=== PATIENT | male | born 1940 | race Caucasian/White ===

== ENCOUNTER 2017-04-10 12:45 | Outpatient (CLI) | payer MEDICARE, OTHER ==
[~2017-04-10] VITALS: Ht 170.2 cm; Wt 95.3 kg
[2017-04-10] MEDS ORDERED: DUTA0.5C14 PO (12:58)
[2017-04-10] MEDS ORDERED: NEBI5TAB8 PO (12:58)
[2017-04-10] MEDS ORDERED: ASPI-999 PO (12:58)
[2017-04-10] MEDS ORDERED: TAMS0.4C2 PO (12:58)
[2017-04-10] MEDS ORDERED: ATOR40TA70 PO (12:58)
[2017-04-10] MEDS ORDERED: ACET-93 PO (12:58)
[2017-04-10 13:04] VITALS: BP 136/78
== END 2017-04-10 13:37 | disposition home or self-care (01) ==
LOC: PREOP 12:45
PROVIDERS: ATTEND Orthopaedic Surgery Orthopaedic Surgery of the Spine
DX: Z01.818 Encounter for other preprocedural examination (principal); Z11.2 Encounter for screening for other bacterial diseases; M48.061 Spinal stenosis, lumbar region without neurogenic claudication
CPT/HCPCS: 87081

== ENCOUNTER 2017-04-15 06:00 | Day surgery (SDC) | payer MEDICARE, OTHER ==
[~2017-04-15] VITALS: Ht 170.2 cm; Wt 95.3 kg
[~2017-04-15 06:00] MED LIST: ACET-93 PO; ASPI-999 PO; ATOR40TA70 PO; DUTA0.5C14 PO; NEBI5TAB8 PO; TAMS0.4C2 PO
[2017-04-15 06:10] VITALS: BP 176/86
--- OUTSIDE RECORDS SUMMARY | 2017-04-15 06:14 | XMS REPORT ---
Author Author ECHO ANDRADE e[employer] Address Unknown Phone Unavailable Care Team Providers Care Chair Car Attendant Name Role Phone ECHO ANDRADE CP Unavailable Allergies, Adverse Reactions, Alerts Substance Reaction Event Type N.K.D.A. Info Not Available Non Drug Allergy Problems Problem Type Condition Code Onset Dates Condition Status Assessment Encounter for dental examination Z01.20 Active Problem Encounter for dental examination Z01.20 Active Medications Medication Code System Code Instructions Start Date End Date Status Dosage Lipitor [facility] [id number] not defined Bystolic [facility] [id number] not defined Procedures Procedure Coding System Code Date INTRAORL-PERIAPICAL 1 FILM 94766 CPT-4 D0220 Feb 07, 2016 INTRAORL-PERIAPICAL EA ADD FILM CPT-4 D0230 Feb 07, 2016 COMP ORAL EVALUATION - NEW/EST PT CPT-4 D0150 Feb 07, 2016 BITEWINGS - FOUR FILMS CPT-4 D0274 Feb 07, 2016 INTRAORL-PERIAPICAL EA ADD FILM CPT-4 D0230 Feb 07, 2016 PANORAMIC FILM SEE ALSO CODE 40477 CPT-4 D0330 Feb 07, 2016 Vital Signs Date/Time: Feb 07, 2016 Blood Pressure Diastolic 86 mmHg Blood Pressure Systolic 168 mmHg Cardiac Monitoring Heart Rate 57 bpm Results No Known Results Summary Purpose eClinicalWorks Submission
[2017-04-15] MEDS ORDERED: ceFAZolin 2 GM/50 ML NS 50 ML ONE (06:27)
[2017-04-15] MEDS ORDERED: LACTATED RINGERS 1,000 ML IV PRN (06:33)
[2017-04-15] MEDS ORDERED: SUCCINYLCHOLINE INJ 100 MG/5 ML SYR ONE (06:53)
[2017-04-15] MEDS ORDERED: ROCURONIUM 50 MG/5 ML (ZEMURON) VIAL IV ONE (06:53)
[2017-04-15] MEDS ORDERED: fentaNYL INJECTION 100 MCG/2 ML AMP ONE (06:53)
[2017-04-15] MEDS ORDERED: LIDOCAINE PF 2% 5 ML (XYLOCAINE) VIAL ONE (06:53)
[2017-04-15] MEDS ORDERED: ONDANSETRON 4 MG/2 ML (SDV) Z0FRAN ONE (06:53)
[2017-04-15] MEDS ORDERED: proPOfol 200 MG/20 ML (DIPRIVAN) VIAL IV ONE (06:53)
[2017-04-15] MEDS ORDERED: NS (IVPB) 100 ML ONE (06:54)
[2017-04-15] MEDS ORDERED: DEXAMETHASONE 10 MG/ML (DECADRON) 1 ML VIAL ONE (06:54)
[2017-04-15] MEDS ORDERED: MIDAZOLAM 2 MG/2 ML (VERSED) VIAL ONE (06:54)
[2017-04-15] MEDS ORDERED: DEXMEDETOMIDINE 200 MCG/2 ML (PRECEDEX) VIAL IV ONE (06:54)
[2017-04-15] MEDS ORDERED: BUP/EPI 0.5% 1:200,000 (MARCAINE) 10ML VIAL IJ ONE (06:55)
[2017-04-15] MEDS ORDERED: GENTAMICIN 40 MG/ML 2 ML INJ SDV ONE (06:55)
[2017-04-15] MEDS ORDERED: ceFAZolin 2 GM/50 ML NS 50 ML IV ONE (07:15)
[2017-04-15] MEDS ORDERED: morphine INJ 10 MG/ML 1ML (SYR OR VIAL) IVP PRN ×2 (07:30→09:30)
[2017-04-15] MEDS ORDERED: PROMETHAZINE 25 MG (PHENERGAN) TAB PO PRN (07:30)
[2017-04-15] MEDS ORDERED: ACETAMINOPHEN 325 MG TABLET/CAPLET (TYLENOL) PO PRN (07:30)
[2017-04-15] MEDS ORDERED: ONDANSETRON 4 MG/2 ML (SDV) Z0FRAN IV PRN (07:30)
[2017-04-15] MEDS ORDERED: SEVOFLURANE (ULTANE) 15 ML INHAL SOLN ONE ×2 (08:52→09:09)
--- NOTE | 2017-04-15 08:57 | Progress Note-Post Operative ---
Post-Operative Progess Note Surgeon (s)/Finish Photographer (s) Surgeon TED SEGURA MD Finish Photographer: TONI Jimenez Pre-Operative Diagnosis STENOSIS Post-Operative Diagnosis Same Procedure & Operative Findings Date of Procedure 04/15/17 Procedure Performed/Findings L3-S1 Laminectomy Anesthesia Type GETA Estimated Blood Loss Estimated blood loss (mL): 150 Specimens/Packing Specimens Removed none TED SEGURA MD Apr 15, 2017 8:57 am
[2017-04-15] MEDS ORDERED: GLYCOPYRROLATE 0.2 MG/ML (ROBINUL) 2 ML VIAL ONE (09:05)
[2017-04-15] MEDS ORDERED: NEOSTIGMINE (BLOXIVERZ ) 1 MG/1ML 10 ML VIAL ONE (09:05)
[2017-04-15] MEDS ORDERED: MEPERIDINE (DEMEROL) INJ 50 MG/ML IVP PRN (09:30)
[2017-04-15] MEDS ORDERED: ONDANSETRON 4 MG/2 ML (SDV) Z0FRAN IVP PRN (09:30)
[2017-04-15] MEDS ORDERED: HYDROmorphone (DILAUDID) 2 MG/ML VIAL IVP PRN (09:30)
--- NOTE | 2017-04-15 11:28 | Diagnostic Imaging Report ---
INDICATION: Localization. FINDINGS: Intraoperative crosstable lateral spot radiograph and 3.4 seconds of fluoroscopy time were utilized. The radiograph shows a hooked instrument projecting over the lamina of what is presumed to be the L4 level assuming normal lumbar segmentation. There is L4 on L5 grade 1 anterolisthesis and slight L3 on L4 anterolisthesis. IMPRESSION: Fluoroscopy was utilized during lumbar surgery. Intraoperative posterior element localization was performed. Dictated by: Dictated on workstation # [id number]
[2017-04-15] MEDS ORDERED: ceFAZolin INJECTION 2,000 MG in NS (IVPB) 50 ML IV SCH (11:30)
[2017-04-15 12:00] VITALS: BP 154/63
[2017-04-15] MEDS: HYDROcodone/APAP 5 MG/325 MG (LORTAB) TAB PO PRN ×2 (12:36→20:29)
[2017-04-15] MEDS ORDERED: DEXAMETHASONE 10 MG/ML (DECADRON) 1 ML VIAL IV NR (15:16)
[2017-04-15 15:45] VITALS: BP 159/79
[2017-04-15] MEDS: ceFAZolin 2 GM/NS 50 ML IVPB IV SCH ×2 (15:52→22:06)
[2017-04-15 18:35] VITALS: BP 178/82
[2017-04-15] MEDS: FAMOTIDINE 20 MG (PEPCID) TABLET PO SCH (20:29)
[2017-04-16] VITALS: BP 153/71
[2017-04-16] MEDS: HYDROcodone/APAP 5 MG/325 MG (LORTAB) TAB PO PRN (03:11)
[2017-04-16 04:00] VITALS: BP 166/80
[2017-04-16] MEDS: ceFAZolin 2 GM/NS 50 ML IVPB IV SCH (05:58)
--- NOTE | 2017-04-16 06:43 | Progress Note (SOAP) ---
Subjective Date Seen by Provider: Apr 16, 2017 Time Seen by Provider: 06:42 Subjective/Events-last exam No complaints, feels ok. Little numbness in feet, but pain ok. Objective Exam Vital Signs Date Time Temp Pulse Resp B/P (MAP) Pulse Ox O2 Delivery O2 Flow Rate FiO2 04/16/17 04:00 98.9 81 19 166/80 (108) 95 Room Air 04/16/17 00:00 99.5 73 16 153/71 (98) 97 Room Air 04/15/17 18:35 97.7 65 20 178/82 (114) 96 Room Air 04/15/17 15:45 97.6 63 18 159/79 (105) 99 Room Air 04/15/17 15:25 97.3 04/15/17 13:10 97.3 04/15/17 12:36 97.3 04/15/17 12:00 97.8 72 18 154/63 (93) 95 Room Air 04/15/17 10:10 98 Room Air 04/15/17 10:10 97.3 04/15/17 10:10 97.3 04/15/17 08:09 97.3 I & O 04/16/17 07:00 Intake Total 1690 ml Output Total 1125 ml Balance 565 ml Capillary Refill : General Appearance: No Apparent Distress Neck: Supple Respiratory: No Accessory Muscle Use, No Respiratory Distress Cardiovascular: Regular Rate, Rhythm Gastrointestinal: non tender, soft Extremity: Normal Range of Motion, No Calf Tenderness Neurologic/Psychiatric: Alert, Oriented x3, No Motor/Sensory Deficits Skin: Normal Color Assessment/Plan Assessment/Plan Assess & Plan/Chief Complaint Lumbar Stenosis, Neural Canal Neurogenic Claudication D/C home later today, instructions given Clinical Quality Measures DVT/VTE Risk/Contraindication: Risk Factor Score Per Nursin RFS Level Per Nursing on Admit: 4+=Very High TED SEGURA MD Apr 16, 2017 6:43 am
[2017-04-16] MEDS ORDERED: BACL10TA PO (06:47)
[2017-04-16] MEDS ORDERED: ACHD5005 PO (06:47)
[2017-04-16] MEDS ORDERED: MULTIVIT W/MINERALS TAB (THERAGRAN M) PO SCH (07:00)
[2017-04-16 08:00] VITALS: BP 137/66
--- NOTE | 2017-04-16 08:25 | OPERATIVE REPORT ---
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 PROCEDURES PERFORMED: 1. L3-L4 laminectomy, bilateral medial facetectomy and foraminotomy. 2. L4-L5 laminectomy, bilateral medial fasciectomy and foraminotomy. 3. L5-S1 laminectomy, bilateral medial facetectomy and foraminotomy. DATE AND TIME OF SURGERY: Please see anesthesia record. SURGEON: Jamar Segura MD. SHOE COVERER: ANDRÉS Jimenez. ROLE OF CORE BAKER: Aid in retraction in the procedure, suction of neural elements, and wound closure. ANESTHESIA: General endotracheal. ESTIMATED BLOOD LOSS: 150 mL. INTRAVENOUS FLUIDS: Please see anesthesia record. ANTIBIOTICS: Ancef. COMPLICATIONS: None. SPECIMENS: None. INDICATIONS FOR PROCEDURE: The patient is 76-year-old male with progressively intolerable back and lower extremity pain, high-grade stenosis, failed conservative therapy and desires operative treatment. NEUROMONITORING: Standard neuromonitoring was performed throughout the procedure and stable. Dr. Paulson reading SSEPs, EMGs and TF's were carried out throughout the procedure and is stable. DESCRIPTION OF PROCEDURE: The patient was taken to the preoperative holding area and brought back to the operative suite. After adequate induction of general anesthesia, preoperative antibiotics, turned prone on Ramin table, care with padding to all extremities, sterilely prepped and draped posterior lumbar spine. Attention was directed to the midline, where incision was made from L3-S1 dissection carried down to the level of the lamina. C-arm was brought in for confirmation and appropriate levels were confirmed, partial 3 complete, 4 complete, 5 and partial S1 laminectomy, bilateral medial fasciectomy and foraminotomy performed. Full and adequate decompression was assured. Once adequate decompression was assured and bipolar cautery used to gain hemostasis, deep drain was placed. Wound was closed in layers. The patient transferred to recovery room in stable condition and tolerated the procedure well. Job ID: [id number] DocumentID: [id number] Dictated Date: 04/15/2017 08:59:21 Camera Assembler Date: 04/15/2017 19:12:24 Dictated By: JAMAR SEGURA MD [facility]
[2017-04-16] MEDS: FAMOTIDINE 20 MG (PEPCID) TABLET PO SCH (08:29)
--- NOTE | 2017-04-16 09:40 | Physical Therapy Evaluation ---
PT Evaluation-General Medical Diagnosis Admission Date Apr 15, 2016 Medical Diagnosis: stenosis Onset Date: Apr 15, 2017 Therapy Diagnosis Therapy Diagnosis: debility Height/Weight Height (Feet): 5 Height (Inches): 7.00 Weight (Pounds): 210 Weight (Ounces): 3.0 Precautions Precautions/Isolations: Standard Precautions Weight Bear Status Right Lower Extremity: Right Full Weight Bearing Left Lower Extremity: Left Full Weight Bearing Referral Physician: Melany Reason for Referral: Evaluation/Treatment Medical History Current History s/p L3-S1 laminectomy Reviewed History: Yes Social History Home: Single Level Current Living Status: Spouse Prior/Core FIM Prior Level of Function Functional [place] Measure 0=Not Assessed/NA 4=Minimal Assistance 1=Total Assistance 5=Supervision or Setup 2=Maximal Assistance 6=Modified [place] 3=Moderate Assistance 7=Complete [place] Bed Mobility: 7 Transfers (B,C,W/C) (FIM): 7 Gait: 7 Locomotion: 7 PT Evaluation-Current Subjective Patient reports his left LE feels numb, however, his strength is fine. Pain Numeric Pain Scale: 5-Moderate Pain Location: Lower Location Body Site: Back Pain Description: Acute Objective Patient Orientation: Normal For Age Problem Solving: Good ROM/Strength ROM Lower Extremities bilateral LE WNL Strength Lower Extremities right knee flexion/extension 4/5; hip flexion NT; DF/PF 4/5 left knee flexion/extension 4/5; hip flexion NT; DF/PF 4/5 Integumentary/Posture Integumentary refer to nursing notes Bowel Incontinence: No Bladder Incontinence: No Posture WNL Neuromuscular (Tone, Coordination, Reflexes) grossly intact with left LE slight decreased proprioception Sensory Vision: Functional Hearing: Functional Sensation Right Lower Extremit: Intact Sensation Left Lower Extremity: Impaired Transfers Functional [place] Measure 0=Not Assessed/NA 4=Minimal Assistance 1=Total Assistance 5=Supervision or Setup 2=Maximal Assistance 6=Modified [place] 3=Moderate Assistance 7=Complete [place] Transfers (B, C, W/C) (FIM): 6 Scootin Rollin Supine to/from Sit: 6 Sit to/from Stand: 6 education/instruction on log rolling for bed mobility Gait Mode of Locomotion: Walk Anticipated Mode of Locomotion: Walk Gait (FIM): 6 Distance (FIM): 3=150 ft Distance: 250' Gait Level of Assist: 6 Gait Assistive Device: FWW Comments/Gait Description steady/functional Balance Sitting Static: Normal Sitting Dynamic: Normal Standing Static: Normal Standing Dynamic: Normal Assessment/Needs 76 y.o. male, will benefit from short term skilled PT to address functional strength and mobility to ensure safe return to home with spouse. Rehab Potential: Good PT Short Term Goals Short Term Goals Time Frame: Apr 16, 2017 Transfers (B,C,W/C) (FIM): 6 Gait (FIM): 6 Distance (FIM): 3=150 ft Gait Level of Assist: 6 Gait Assistive Device: FWW PT Plan Treatment/Plan Treatment Plan: Continue Plan of Care Treatment Plan: Bed Mobility, Education, Functional Activity Meri, Functional Strength, Gait, Safety, Therapeutic Exercise, Transfers Treatment Duration: Apr 16, 2017 Frequency: 2 times per week Estimated Hrs Per Day: .5 hour per day Patient and/or Family Agrees t: Yes Safety Risks/Education Patient Education: Gait Training, Correct Positioning, Safety Issues Teaching Recipient: Patient Teaching Methods: Demonstration, Discussion Response to Teaching: Verbalize Understanding, Return Demonstration Discharge Recommendations Therapy D/C Recommendations: Home w/ Family Support Equpiment Recommendations-D/C: Front Wheeled Walker Time/GCodes Time In: 825 Time Out: 849 Total Billed Treatment Time: 24 Total Billed Treatment 1 visit EVMod 24 min G Codes Necessary: Yes PT/OT Therapy GCodes Therapy Functional Limitation: Physical Therapy Test(s)/Tool used to determine: Level of Assistance Scale Functional Limitation-Current Charge Code: MOBCUR Modifier: CI Functional Limitation-Goal Charge Code: MOBGOAL Modifier: CI NADIR ROSS PT Apr 16, 2017 09:40
--- NOTE | 2017-04-16 10:49 | Anesthesia-General Post-Op ---
General Patient Condition Mental Status/LOC: Same as Preop Cardiovascular: Satisfactory Nausea/Vomiting: Absent Respiratory: Satisfactory Pain: Controlled Complications: Absent Post Op Complications Complications None Follow Up Care/Instructions Patient Instructions None needed. Anesthesia/Patient Condition Patient Condition Patient is doing well, no complaints, stable vital signs, no apparent adverse anesthesia problems. No complications reported per nursing. ARCHANA VALE CRNA Apr 16, 2017 10:49
--- NOTE | 2017-04-16 11:40 | Physical Therapy Daily Note ---
PT Daily Note-Current Subjective Patient agrees to PT. No c/o at this time. Pain Numeric Pain Scale: 5-Moderate Pain Location: Lower Location Body Site: Back Pain Description: Acute Mental Status Patient Orientation: Normal For Age Transfers Functional [place] Measure 0=Not Assessed/NA 4=Minimal Assistance 1=Total Assistance 5=Supervision or Setup 2=Maximal Assistance 6=Modified [place] 3=Moderate Assistance 7=Complete IndependenceIRFPAI Quality Coding Scale 6 Independent with activity with or without an assistive device 5 Patient requires set up or clean up by helper. Patient completes activity by themselves 4 Supervision or touching assist (CGA). Treichlers provide cues , steadying assist 3 The helper provides less than half the effort to complete the activity 2 The helper provides more than half the effort to complete the activity 1 Dependent. The helper does all the effort to complete an activity 7 Patient refused to complete or attempt activity 9 The patient did not perform the activity before the current illness or injury 88 Not attempted due to Medical conditions or safety concerns Transfers (B, C, W/C) (FIM): 6 Scootin Supine to/from Sit: 6 Sit to/from Stand: 6 Weight Bearing Right Lower Extremity: Right Full Weight Bearing Left Lower Extremity: Left Full Weight Bearing Gait Training Gait (FIM): 6 Distance (FIM): 3=150 ft Distance: 400' Gait Level of Assist: 6 Gait Assistive Device: FWW slightly unsteady with self correction Stair Training Stair Training: Handrails/: 2 handrails Stairs (FIM): 2 #of Steps: 2 Stairs: Pattern: Step to Level of Assist: 5 Assessment Patient is currently at [facility] with all gross motor skills. Patient instructed to perform activity slowly to ensure safety. PT requests a FWW for home use due to left LE numbness. PT Short Term Goals Short Term Goals Time Frame: Apr 16, 2017 Transfers (B,C,W/C) (FIM): 6 Gait (FIM): 6 Distance (FIM): 3=150 ft Gait Level of Assist: 6 Gait Assistive Device: FWW PT Plan Treatment/Plan Treatment Plan: Discontinue PT, goals met Treatment Plan: Bed Mobility, Education, Functional Activity Meri, Functional Strength, Gait, Safety, Therapeutic Exercise, Transfers Treatment Duration: Apr 16, 2017 Frequency: 2 times per week Estimated Hrs Per Day: .5 hour per day Patient and/or Family Agrees t: Yes Time/GCodes Time In: 1116 Time Out: 1130 Total Billed Treatment Time: 14 Total Billed Treatment 1 visit FA 14 min G Codes Necessary: Yes PT/OT Therapy GCodes Therapy Functional Limitation: Physical Therapy Test(s)/Tool used to determine: Level of Assistance Scale Functional Limitation-Current Charge Code: MOBCUR Modifier: CI Functional Limitation-Goal Charge Code: MOBGOAL Modifier: CI Functional Limitation-D/C Charge Codes: MOBDC Modifier: CI NADIR ROSS PT Apr 16, 2017 11:40
[2017-04-16 12:00] VITALS: BP 142/61
[2017-04-16 14:22] VITALS: BP 142/61
== END 2017-04-16 14:22 | disposition home or self-care (01) ==
LOC: SDC 06:00 → 4TH 10:20 → SDC 04-16 14:22
PROVIDERS: ATTEND Orthopaedic Surgery Orthopaedic Surgery of the Spine
DX: M48.062 Spinal stenosis, lumbar region with neurogenic claudication (principal); M54.16 Radiculopathy, lumbar region; M48.07 Spinal stenosis, lumbosacral region; E78.5 Hyperlipidemia, unspecified; G62.9 Polyneuropathy, unspecified; I10 Essential (primary) hypertension; N40.1 Benign prostatic hyperplasia with lower urinary tract symptoms; Z95.1 Presence of aortocoronary bypass graft; Z79.899 Other long term (current) drug therapy; Z95.2 Presence of prosthetic heart valve; Z79.82 Long term (current) use of aspirin
CPT/HCPCS: 94664

== ENCOUNTER 2018-05-25 18:45 | Emergency (ER) | payer MEDICARE, OTHER ==
[~2018-05-25] VITALS: Ht 170.2 cm; Wt 90.7 kg
[~2018-05-25 18:45] MED LIST changes: +ACHD5005 PO; +BACL10TA PO; -DUTA0.5C14 PO; +DUTA0.5C16 PO
[2018-05-25] MEDS ORDERED: KETOROLAC 30 MG/ML VIAL IVP STA (22:37)
[2018-05-25] MEDS ORDERED: TETANUS,DIPTH,PERTUSS P/F (BOOSTRIX) 0.5 ML VIAL IM STA (22:37)
--- NOTE | 2018-05-25 22:44 | ED Integumentary General ---
General Chief Complaint: Bite-Animal/Human/Insect Stated Complaint: DOG BITE Nursing Triage Note: ARRIVED POV BC HE WAS BREAKING UP A DOG FIGHT BETWEEN A STRAY DOG AND HIS DOG AND GOT BIT ON BOTH HANDS AND HIS RIGHT LOWER SIMON. Source: patient History of Present Illness Date Seen by Provider: May 25, 2018 Time Seen by Provider: 22:30 Initial Comments PT ARRIVES VIA POV FROM HOME PT WAS TRYING TO BREAK UP A FIGHT BETWEEN HIS DOG AND NEIGHBOR'S DOG, AND NEIGHBOR'S DOG BIT HIM SEVERAL TIMES--BOTH HANDS, LEFT FOREARM AND RIGHT LOWER LEG. OCCURRED AROUND 1730 TONIGHT NEIGHBOR'S DOG IS UP TO DATE ON ALL VACCINATIONS. C/O MILD TINGLING AND NUMBNESS TO RIGHT 3RD AND 5TH FINGERS PT STATES HIS LAST TETANUS WAS SEVERAL YEARS AGO. PCP: SINDHU SOTO Allergies and Home Medications Allergies Coded Allergies: No Known Drug Allergies (Unverified , 04/10/17) Home Medications Acetaminophen 500 Mg Tablet, 500-1,000 MG PO Q6H PRN for PAIN-MILD, (Reported) Aspirin 81 Mg Tab.chew, 81 MG PO DAILY, (Reported) Atorvastatin Calcium 40 Mg Tablet, 40 MG PO HS, (Reported) Baclofen 10 Mg Tablet, 10 MG PO TID PRN for SPASMS Prescribed by: TED SEGURA on 04/16/17 0647 Dutasteride 0.5 Mg Capsule, 0.5 MG PO DAILY, (Reported) Hydrocodone Bit/Acetaminophen 1 Tab Tab, 1-2 TAB PO Q4H PRN for PAIN-MODERATE TO SEVERE Prescribed by: TED SEGURA on 04/16/17 0647 Nebivolol HCl 5 Mg Tablet, 5 MG PO DAILY, (Reported) Tamsulosin HCl 0.4 Mg Cap.er.24h, 0.4 MG PO DAILY, (Reported) Past Sslmpft-Axwxeu-Htwyus Hx Patient Social History Alcohol Beverage of Choice: Wine Recent Foreign Travel: No Contact w/Someone Who Travel: No Recent Infectious Disease Expo: No Recent Hopitalizations: No Immunizations Up To Date Tetanus Booster (TDap): Unknown PED Vaccines UTD: No Date of Pneumonia Vaccine: Feb 18, 2017 Date of Influenza Vaccine: Jan 21, 2017 Seasonal Allergies Seasonal Allergies: No Past Medical History Surgeries: Yes (BACK, REMOVED CYST, BYPASS 2011) Respiratory: No Cardiac: Yes (BYPASS) Coronary Artery Disease, High Cholesterol, Hypertension Neurological: No Reproductive Disorders: No Sexually Transmitted Disease: No HIV/AIDS: No Prostate Problems Gastrointestinal: No Musculoskeletal: Yes (STENOSIS) Arthritis, Chronic Back Pain Endocrine: No Loss of Vision: Bilateral Hearing Impairment: Denies Cancer: No Psychosocial: No Integumentary: No Blood Disorders: No Adverse Reaction/Blood Tranf: No (N/A) Physical Exam Vital Signs Vital Signs - First Documented 05/25/18 19:09 Temp 97.3 Pulse 80 Resp 18 B/P (MAP) 220/104 (142) O2 Delivery Room Air Capillary Refill : Less Than 3 Seconds Progress/Results/Core Measures Results/Orders My Orders Orders - PRITESH ANTONIO DO Saline Lock/Iv-Start (05/25/18 22:37) Wound Dressing-Ed (05/25/18 22:37) Hand, Left, 3 Views (05/25/18 22:37) Hand, Right, 3 Views (05/25/18 22:37) Ketorolac Injection (Toradol Injection) (05/25/18 22:37) Dipht,Pertuss(Acell),Tet Adult (Boostrix (05/25/18 22:37) Piperacillin/Tazobactam (Bulk) (Zosyn In (05/25/18 22:45) Piperacillin Sodium/Tazobactam (Zosyn Vi (05/25/18 23:05) Ns (Ivpb) (Sodium Chloride 0.9% Ivpb Bag (05/25/18 23:10) Lidocaine 1% Inj 20 Ml (Xylocaine 1% Inj (05/26/18 00:00) Mupirocin Ointment (Bactroban Ointment (05/26/18 00:12) Lidocaine 2% Pf 5 Ml (Xylocaine 2% Pf) (05/26/18 01:11) Lidocaine 2% Pf 5 Ml (Xylocaine 2% Pf) (05/26/18 01:44) Lidocaine 2% Pf 5 Ml (Xylocaine 2% Pf) (05/26/18 01:45) Rx-Hydrocodone/Apap 5-325 Mg (Rx-Vicodin (05/26/18 02:30) Ed Ortho Supplies Order (05/26/18 02:17) Medications Given in ED Current Medications Medications Dose Ordered Sig/Genaro Route Start Time Stop Time Status Last Admin Dose Admin Lidocaine HCl 20 ml STK-MED ONCE .ROUTE 05/26/18 00:00 05/26/18 00:05 DC 05/26/18 00:06 20 ML Mupirocin 22 gm STK-MED ONCE .ROUTE 05/26/18 00:12 05/26/18 00:18 DC 05/26/18 00:21 22 GM Piperacillin Sod/ Tazobactam Sod 4.5 gm/Sodium Chloride 120 ml @ 240 mls/hr ONCE ONCE IV 05/25/18 22:45 05/25/18 23:14 DC 05/25/18 23:46 240 MLS/HR Sodium Chloride 50 ml @ ud STK-MED ONCE .ROUTE 05/25/18 23:10 05/25/18 23:15 DC 05/25/18 23:46 240 MLS/HR Vital Signs/I&O 05/25/18 19:09 Temp 97.3 Pulse 80 Resp 18 B/P (MAP) 220/104 (142) O2 Delivery Room Air Blood Pressure Mean: 142 Departure Impression Primary Impression: Dog bite of multiple sites of right hand and fingers Additional Impressions: Dog bite of multiple sites of left hand and fingers Dog bite of multiple sites of left upper arm Axospheryb-ojtwatyum-loaipbo (DPT) vaccination administered at current visit EXTENSOR TENDON INJURY OF RIGHT 5TH FINGER Dog bite of right lower leg Disposition: 01 HOME, SELF-CARE Condition: Stable Departure-Patient Inst. Referrals: NO,LOCAL PHYSICIAN (PCP) Primary Care Physician OPAL GONZALEZ MD Patient Instructions: Animal Bites (DC), Diphtheria and Tetanus Toxoids, and Acellular Pertussis Vaccine, Laceration Repair With [place] (DC), Laceration Repair With Stitches (DC), SPLINT CARE Add. Discharge Instructions: LEAVE DRESSINGS IN PLACE AT ALL TIMES WEAR SPLINT AT ALL TIMES DO NOT GET WOUNDS WET FOLLOW UP WITH DR. GONZALEZ IN 1-2 DAYS FOR FURTHER CARE All discharge instructions reviewed with patient and/or family. Voiced understanding. Scripts Hydrocodone Bit/Acetaminophen (Hydrocodone/Acetaminophen 5/325mg Tablet) 1 Tab Tab 1-2 EACH PO Q6H PRN for PAIN-MODERATE MDD 10, #20 TAB Prov: PRITESH ANTONIO DO 05/26/18 Amoxicillin/Potassium Clav (Augmentin 875-125 Tablet) 1 Each Tablet 1 EACH PO BID for INFECTION, #20 TAB Prov: PRITESH ANTONIO DO 05/26/18 PRITESH ANTONIO DO May 25, 2018 22:44
[2018-05-25] MEDS ORDERED: PIPERACILLIN/TAZOBACTAM (BULK) 4.5 GM in NS (IVPB) 100 ML IV ONE (22:45)
[2018-05-25] MEDS ORDERED: PIPERACILLIN/TAZO 4.5 GM VIAL (ZOSYN) IV ONE (23:05)
[2018-05-25] MEDS ORDERED: NS (IVPB) 50 ML ONE (23:10)
[2018-05-26] MEDS ORDERED: LIDOCAINE 1% INJ 20 ML 20 ML VIAL ONE
[2018-05-26] MEDS ORDERED: MUPIROCIN 2% OINT 22 GM (BACTROBAN) TUBE ONE (00:12)
[2018-05-26] MEDS ORDERED: LIDOCAINE PF 2% 5 ML (XYLOCAINE) VIAL ONE ×3 (01:11→01:45)
[2018-05-26] MEDS ORDERED: AMOX-358 PO (02:25)
[2018-05-26] MEDS ORDERED: ACHD5005 PO (02:25)
[2018-05-26] MEDS ORDERED: RX-HYDROCODONE/APAP 5/325 MG #4 TAB PK PO PRN (02:30)
[2018-05-26 04:15] VITALS: BP 173/96
--- NOTE | 2018-05-26 05:30 | Diagnostic Imaging Report ---
INDICATION: Dog bite to the hand COMPARISON: None. FINDINGS: 3 views of the left hand show no fractures, dislocations, or other acute bony abnormalities identified. Joint spaces are well maintained throughout. The soft tissues appear unremarkable. No radiopaque foreign bodies are identified. Mild osteoarthritic changes are noted. IMPRESSION: No acute fractures or dislocations of the left hand. Dictated by: Dictated on workstation # [id number]
--- NOTE | 2018-05-26 05:31 | Diagnostic Imaging Report ---
INDICATION: Dog bite to the hand COMPARISON: None. FINDINGS: 4 views of the right hand show no fractures, dislocations, or other acute bony abnormalities identified. Joint spaces are well maintained throughout. The soft tissues appear unremarkable. No radiopaque foreign bodies are identified. IMPRESSION: No acute fractures or dislocations of the right hand. Dictated by: Dictated on workstation # [id number]
== END 2018-05-26 04:15 | disposition home or self-care (01) ==
LOC: EDUNIT# 18:45 → ER 18:47
DX: S61.451A Open bite of right hand, initial encounter (principal); S61.252A Open bite of right middle finger without damage to nail, initial encounter; S61.256A Open bite of right little finger without damage to nail, initial encounter; S41.152A Open bite of left upper arm, initial encounter; S81.851A Open bite, right lower leg, initial encounter; I25.10 Atherosclerotic heart disease of native coronary artery without angina pectoris; I10 Essential (primary) hypertension; E78.00 Pure hypercholesterolemia, unspecified; Z79.82 Long term (current) use of aspirin; Z95.1 Presence of aortocoronary bypass graft; W54.0XXA Bitten by dog, initial encounter
CPT/HCPCS: 73130; 90715